=== PATIENT | male | born 1955 | race Caucasian/White ===

== ENCOUNTER 2018-04-30 14:22 | Emergency (ER) | payer MEDICAID ==
[~2018-04-30] VITALS: Ht 182.9 cm; Wt 81.6 kg
--- NOTE | 2018-04-30 14:42 | NUR ---
BBPA FROM [facility]: GENERALIZED BODY WEAKNESS x 2 DAYS. WILL CONT TO MONITOR
[2018-04-30 15:16] LABS: BASOPHILS # (AUTO) 0.2 /CMM (0.0-0.2); BASOPHILS % (AUTO) 1.9 % (0.0-2.0); EOSINOPHILS % (AUTO) 0.4 % (0.0-6.0); HEMATOCRIT 46 % (39-51); HEMOGLOBIN 15.6 g/dL (13.5-17.5); LYMPHOCYTES # (AUTO) 1.2 /CMM (0.8-4.8); MEAN CORPUSCULAR HEMOGLOBIN 31 PG (26.0-33.0); MEAN CORPUSCULAR HGB CONC 34 g/dl (31.0-36.0); MEAN CORPUSCULAR VOLUME 90 fL (80-96); MONOCYTES # (AUTO) 0.9 /CMM (0.1-1.30); NEUTROPHILS # (AUTO) 6.1 /CMM (1.8-8.9); NEUTROPHILS % (AUTO) 72.7 % (43.0-81.0); PLATELET COUNT (AUTO) 173 /CMM (150-450); RDW COEFFICIENT OF VARIATION 12.6 (11.5-15.0); RED BLOOD CELL COUNT(AUTO) 5.09 MIL/uL (4.5-6.0); WHITE BLOOD COUNT (AUTO) 8.4 K/uL (4.3-11.0)
[2018-04-30 15:25] LABS: CALCIUM, SERUM 8.8 mg/dL (8.5-10.1); CARBON DIOXIDE 25 mmol/L (21-32); CHLORIDE 108 mmol/L (98-107); GLUCOSE 113 mg/dL (74-106); POTASSIUM 3.9 mmol/L (3.5-5.1); SODIUM SERUM 140 mmol/L (136-145); UREA NITROGEN, BLOOD 14 mg/dL (7-18)
[2018-04-30 15:29] LABS: INR 0.96 (0.85-1.15)
[2018-04-30 15:31] LABS: ALANINE AMINOTRANSFERASE 36 U/L (12-78); ALBUMIN 3.1 g/dL (3.4-5.0); ALKALINE PHOSPHATASE 76 U/L (46-116); ASPARTATE AMINOTRANSFERASE 14 U/L (15-37); BILIRUBIN,DIRECT 0.1 mg/dL (0.0-0.2); BILIRUBIN,TOTAL 0.4 mg/dL (0.2-1.0); TOTAL PROTEIN, SERUM 7.2 g/dL (6.4-8.2)
[2018-04-30 15:33] LABS: TROPONIN I < 0.017 ng/mL (0.00-0.056)
[2018-04-30 16:06] LABS: BILIRUBIN,URINE Negative (NEGATIVE); BLOOD, URINE Trace-intact Ery/uL (NEGATIVE); COLOR,URINE Yellow (YELLOW); KETONES,URINE Trace (NEGATIVE); LEUKOCYTE ESTERASE ,URINE Moderate (NEGATIVE); NITRITE, URINE Positive (NEGATIVE); PH,URINE 7.5 (5.0-8.0); PROTEIN,URINE Trace mg/dl (NEGATIVE); UGLUCOSE Negative (NEGATIVE)
[2018-04-30 16:07] LABS: APPEARANCE,URINE Hazy (CLEAR)
[2018-04-30 16:17] LABS: BACTERIA,URINE Many /HPF (None Seen); SQUAMOUS EPITHELIAL CELL,UR Few /HPF (None Seen); WBC,URINE 50-80 /HPF (0-3)
[2018-04-30] MEDS ORDERED: MIDAZOLAM HCL 2 MG/2ML VIAL IV ONE ×2 (16:30)
[2018-04-30] MEDS ORDERED: MIDAZOLAM HCL 2 MG/2ML VIAL ONE (16:31)
[2018-04-30] MEDS ORDERED: PIPERACILLIN /TAZOBACTAM 3.375 G in IV D5W 50 ML IV ONE (18:00)
--- NOTE | 2018-04-30 19:10 | NUR ---
PATIENT IS COMFORTABLE IN BED. WILL CONTINUE TO MONITOR FOR ANY CHANGES DURING THE SHIFT.
[2018-04-30] MEDS ORDERED: IV NS 0.9% 500 ML BAG IV ONE (20:00)
--- NOTE | 2018-04-30 21:58 | NUR ---
PT IS SLEEPING COMFORTABLY IN BED. WILL CONTINUE TO MONITOR FOR ANY CHANGES DURING THE SHIFT.
--- NOTE | 2018-04-30 22:32 | NUR ---
RECEIVED A CALL FROM [facility] AND SPOKE TO JESSICA AND WAS TOLD THIS PT WAS ACCEPTED BY [facility] UNDER DR MAC. PT IS ASSIGNED TO ROOM 206-A, STEPHANIE UREÑA IS THE ACCEPTING NURSE. NUMBER FOR REPORT IS [phone]. WILL GET A CALL BACK FOR TRANSPORT ETA
--- NOTE | 2018-04-30 23:02 | NUR ---
REPORT GIVEN TO MI AT [facility]
--- NOTE | 2018-04-30 23:04 | NUR ---
CALLED [facility] TO MAKE AWARE THAT PATIENT IS BEING TRANSFERRED TO ANOTHER HOSPITAL.
[2018-05-01 00:17] VITALS: BP 115/71
== END 2018-05-01 00:18 | disposition short-term general hospital (02) ==
LOC: ER 14:36
DX: N39.0 Urinary tract infection, site not specified (principal); R53.1 Weakness; G40.909 Epilepsy, unspecified, not intractable, without status epilepticus; E86.0 Dehydration; J44.9 Chronic obstructive pulmonary disease, unspecified; F17.200 Nicotine dependence, unspecified, uncomplicated
CPT/HCPCS: 36415; 70450; 71045; 80048; 80076; 81001; 82962; 83605; 84484; 85025; 85730; 87040 ×2; 87081; 93005; 96365; 96375; 99285; A4606; A6403; J2250; J2543; J7040; J7060; Z7610; 81000-TC

== ENCOUNTER 2021-04-17 18:58 | Inpatient (IN) | payer MEDICARE, MEDICAID ==
[~2021-04-17] VITALS: Ht 175.3 cm; Wt 50.3 kg
--- NOTE | 2021-04-17 18:58 | NUR ---
PT BIBRA FROM SNF C/O LOW 02 SAT AND LOW BP 70'S SYSTOLIC. PT IS AAOX0, NOTED RESPIRATORY DISTRESS, HOOKED TO O2 AT 15LPM VIA NB, HOOKED TO SUPERVISOR ESTERS AND EMULSIFIERS, KEPT RESTED AND COMFORTABLE. WILL CONTINUE TO MONITOR.
--- NOTE | 2021-04-17 19:00 | NUR ---
IV LINE ESTABLISHED.
--- NOTE | 2021-04-17 19:12 | NUR ---
PT SEEN AND EXAMINED BY .
--- NOTE | 2021-04-17 19:15 | NUR ---
Note simona in ED - 04/17/21 at 1927 by YOANA PT IS ABLE TO TALK BUT STILL NOTED WITH SLIGHT STUTTERING. MADE AWARE.
[2021-04-17] MEDS ORDERED: LORA2ORA SL (19:19)
[2021-04-17] MEDS ORDERED: MORP20SO SL (19:19)
[2021-04-17] MEDS ORDERED: MAGN400O6 PO (19:19)
[2021-04-17] MEDS ORDERED: POLY17PO4 PO (19:19)
[2021-04-17] MEDS ORDERED: LEVE100S PO (19:19)
[2021-04-17] MEDS ORDERED: ATRO5DRP SL (19:19)
[2021-04-17] MEDS ORDERED: ACET650S11 RC (19:19)
[2021-04-17] MEDS ORDERED: BISA10SU11 RC (19:19)
[2021-04-17] MEDS ORDERED: IPRA3AMP23 IH (19:19)
[2021-04-17] MEDS ORDERED: SCOP1PAT11 TD (19:19)
[2021-04-17] MEDS ORDERED: MIDO10TA PO (19:19)
[2021-04-17] MEDS ORDERED: ACET-868 PO (19:19)
[2021-04-17] MEDS ORDERED: SENN-261 PO (19:19)
[2021-04-17] MEDS ORDERED: VANCOMYCIN 1 GM in IV D5W 250 ML IV ONE (19:30)
[2021-04-17] MEDS ORDERED: NS 0.9% IV ONE (19:30)
[2021-04-17] MEDS ORDERED: NOREPINEPHRINE 8 MG in IV NS 0.9% 242 ML IV PRN (19:30)
[2021-04-17] MEDS ORDERED: MEROPENEM 1,000 MG in IV NS 0.9% 100 ML IV ONE (19:30)
--- NOTE | 2021-04-17 19:40 | NUR ---
IV LINE ESTABLISHED BLOOD DRAWN AND SENT TO LAB.
--- NOTE | 2021-04-17 19:44 | NUR ---
REPORT GIVEN TO NIRANJAN VAZQUEZ FOR STEVE.
[2021-04-17 19:55] LABS: BASOPHILS % (AUTO) 0.3 % (0.0-2.0); LYMPHOCYTES # (AUTO) 0.4 K/uL (0.8-4.8); LYMPHOCYTES % (AUTO) 5.7 % (20.0-44.0); MEAN CORPUSCULAR HGB CONC 33 g/dl (31.0-36.0); MEAN CORPUSCULAR VOLUME 91 fL (80-96); MONOCYTES # (AUTO) 0.8 K/uL (0.1-1.30); MONOCYTES % (AUTO) 10.3 % (2.0-12.0); NEUTROPHILS # (AUTO) 6.3 K/uL (1.8-8.9); NEUTROPHILS % (AUTO) 83.7 % (43.0-81.0); PLATELET COUNT (AUTO) 176 K/uL (150-450); RED BLOOD CELL COUNT(AUTO) 6.62 MIL/uL (4.5-6.0); WHITE BLOOD COUNT (AUTO) 7.5 K/uL (4.3-11.0)
[2021-04-17 19:58] LABS: HEMOGLOBIN 19.9 g/dL (13.5-17.5)
[2021-04-17 19:59] LABS: HEMATOCRIT 60 % (39-51)
[2021-04-17 20:12] LABS: ALANINE AMINOTRANSFERASE 54 U/L (12-78); ALBUMIN 3.2 g/dL (3.4-5.0); ALKALINE PHOSPHATASE 83 U/L (46-116); ASPARTATE AMINOTRANSFERASE 24 U/L (15-37); BILIRUBIN,DIRECT 0.4 mg/dL (0.0-0.2); BILIRUBIN,TOTAL 1.2 mg/dL (0.2-1.0); CALCIUM, SERUM 9.8 mg/dL (8.5-10.1); CARBON DIOXIDE 21 mmol/L (21-32); CHLORIDE 113 mmol/L (98-107); CREATININE 2.1 mg/dL (0.6-1.3); GLUCOSE 155 mg/dL (74-106); POTASSIUM 4.9 mmol/L (3.5-5.1); SODIUM SERUM 155 mmol/L (136-145); TOTAL PROTEIN, SERUM 7.3 g/dL (6.4-8.2); UREA NITROGEN, BLOOD 44 mg/dL (7-18)
--- NOTE | 2021-04-17 20:15 | NUR ---
RN/ICU- HOME PERSONNEL HERE AND PT. WAS DC PER PROTOCOL. Addendum: 04/17/21 at 2021 by KIRAN GONZALEZ RN PLS. DISREGARD ABOVE NOTE. MISTAKEN ENTRY..............
--- NOTE | 2021-04-17 20:16 | NUR ---
PT REC'D ETOMIDATE 20 AND QUINTEN [address] GOULD'S ORDER AT BED SIDE AT 2013 AND PT GOT INTUBATED W/ A SIZE 7.5 W/ 24CM @LIP. + COLOR CHANGE
--- NOTE | 2021-04-17 20:17 | NUR ---
RESP NOTES PT ORALLY INTUBATED BY BRYANNA SCALES WITH 7.5 ETT SECURED AT 25CM AT THE LIP LINE. MIST NOTED ON TUBE. COLOR CHANGE NOTED ON CO2 DETECTOR. EQUALLY CHEST RISE NOTED. PLACED ON [facility] VENT ON ORDERED SETTINGS AC, 16, 500, 100%, +0. ALARMS SET AND AUDIBLE. AMBUBAG AT BEDSIDE. VENT PLUGGED INTO RED OUTLET. WILL CONT TO MONITOR.
--- NOTE | 2021-04-17 20:26 | NUR ---
DR GOULD AT BED SIDE FOR CENTRAL LINE INSERTION
--- NOTE | 2021-04-17 20:52 | NUR ---
RAD AT BED SIDE
[2021-04-17] MEDS ORDERED: PROPOFOL 100 ML IV PRN (21:00)
[2021-04-17] MEDS ORDERED: FENTANYL CITRAT IV 2,500 MCG in IV NS 0.9% 200 ML IV PRN (21:00)
[2021-04-17 21:21] LABS: BAND % (MANUAL) 9 % (0.0-5.0); LYMPHOCYTES % (MANUAL) 20 % (16-48); MONOCYTES % (MANUAL) 2 % (0-11.0); MYELOCYTES % 1 % (0-0); NEUTROPHILS % (MANUAL) 68 (42-76)
[2021-04-17 21:28] LABS: ABG BASE EXCESS -6.4 mmol/L; ABG OXYGEN SATURATION 99.1 % (92.0-98.5); ABG PCO2 48.9 mmHg (35.0-45.0); ABG PH 7.255 (7.350-7.450); ABG PO2 307.4 mmHg (75.0-100.0); AaDO2 356.7 mmHg; COHb 0.1 % (0.5-1.5); SITE, ABG Right Radial
[2021-04-17] MEDS ORDERED: ONDANSETRON HCL/PF 4 MG/2 ML VIAL IVP PRN (21:30)
[2021-04-17] MEDS ORDERED: Z GUARD REMEDY 2 OZ OINT TP PRN (21:30)
[2021-04-17] MEDS ORDERED: ACETAMINOPHEN 325 MG TABLET PO PRN (21:30)
[2021-04-17] MEDS ORDERED: ZOLPIDEM TARTRATE 5 MG TABLET PO PRN (21:30)
--- NOTE | 2021-04-17 21:37 | NUR ---
REPORT GIVEN LIANG SHAH
[2021-04-17] MEDS ORDERED: NOREPINEPHRINE 4 MG/4 ML AMPUL IV ONE (22:01)
[2021-04-17] MEDS: NOREPINEPHRINE 8 MG in IV NS 0.9% 242 ML IV PRN ×2 (22:15→22:49)
[2021-04-17] MEDS: IV NS 0.9% 1,000 ML IV PRN (22:15)
--- NOTE | 2021-04-17 22:23 | NUR ---
PT WAS TRANSFERRED TO ICU UNDER ACLS
--- NOTE | 2021-04-17 22:30 | NUR ---
ICU/SYSTEMS INTEGRATION MANAGER PT WAS RECIEVED FROM ER. PT PLACED ON MONITOR, WITH ALARM SETTINGS IN PLACE. SEE FLOWSHEET FOR ASSESSMENT, ALONG WITH THE SKIN ISSUES AND THE INTERVENTIONS TO EACH. PT APPEARS TO BE TOLERATING THE VENT AND CURRENT SETTINGS. PT WAS TURNED AND REPOSITIONED FOR COMFORT AND CARE. WILL MONITOR THIS PT FOR ANY ACUTE CHANGES.
[2021-04-17 22:31] VITALS: BP 126/95
[2021-04-17] MEDS: PANTOPRAZOLE 40 MG VIAL IV SCH (22:46)
[2021-04-17 23:00] VITALS: BP 102/88
--- NOTE | 2021-04-17 23:20 | NUR ---
ICU/NAIL ARTIST CRITICAL LAB VALUE OF 6.8 LACTIC ACID FROM 9.9. PN CALL NOTIFED ABOUT THIS HOWEVER NO NEW ORDERS WERE RECIEVED.
[2021-04-17 23:30] VITALS: BP 116/82
[2021-04-17] MEDS ORDERED: PIPERACILLIN /TAZOBACTAM 3.375 G VIAL IV ONE (23:32)
[2021-04-17] MEDS: ZOSYN IVPB 3.375 G in IV D5W 50ml IV SCH (23:33)
--- NOTE | 2021-04-17 23:45 | NUR ---
ICU/ECONOMIC ADVISER NOTIFED THAT THERE IS A PULSE FOR DNR IN PT'S CHART. CHARGE NURSE MADE AWARE OF THIS. WILL PASS ON TO DAY SHIFT NURSE TO HAVE MD ADDRESS THIS.
[2021-04-18] VITALS (92 sets, daily range): BP systolic 82–119; BP diastolic 47–100
[2021-04-18] MEDS ORDERED: NOREPINEPHRINE 8MG/250ML RTU 250 ML IV ONE (00:23)
[2021-04-18] MEDS: NOREPINEPHRINE 8 MG in IV NS 0.9% 242 ML IV PRN ×3 (00:30→16:46)
--- NOTE | 2021-04-18 00:30 | NUR ---
ICU/PATIENT SAFETY ATTENDANT LEVO IS CURRENTLY BEING TITRATED DUE TO STABLE BP 120'S-110'S, BY SKIING INSTRUCTOR NURSE. SEE IF SPREADSHEET FOR TITRATIONS AND BLOOD PRESSURE. WILL CONTINUE TO CLOSELY MONITOR THIS PT AND HIS BLOOD PRESSURE.
[2021-04-18] MEDS: PROPOFOL 100 ML IV PRN ×2 (00:39→08:39)
--- NOTE | 2021-04-18 00:48 | NUR ---
ICU/CONVEYOR FEEDER OFFBEARER PT APPEARS TO BE MORE AWAKE WITH RESP. INCREASED TO THE 30'S -40'S. NOTIFIED CLINICAL ORTHOPTIST NURSE WHO THEN OBTAINED AN ORDER FOR SEDATION, PROPOFOL. WILL CONTINUE TO MONITOR THIS PT.
[2021-04-18 01:48] LABS: BILIRUBIN,URINE SMALL (NEGATIVE); COLOR,URINE YELLOW (YELLOW); LEUKOCYTE ESTERASE ,URINE NEGATIVE (NEGATIVE); NITRITE, URINE NEGATIVE (NEGATIVE); PROTEIN,URINE 100 mg/dl (NEGATIVE); UGLUCOSE NEGATIVE (NEGATIVE)
[2021-04-18 01:57] LABS: FINE GRANULAR CASTS,URINE Few /LPF (None Seen); HYALINE CASTS, URINE Rare /LPF (None Seen); RBC,URINE 81-100 /HPF (0-2); SQUAMOUS EPITHELIAL CELL,UR Few /HPF (None Seen)
[2021-04-18 01:58] LABS: BACTERIA,URINE Few /HPF (None Seen); COARSE GRANULAR CASTS,URINE Few /LPF (None Seen)
--- NOTE | 2021-04-18 02:00 | NUR ---
ICU/TALENT SCOUT SEDATION WAS INCREASED TO 20MCG, DUE TO MILD AGITATION. WILL MONITOR THIS PT.
--- NOTE | 2021-04-18 04:00 | NUR ---
ICU/RIG SUPERVISOR AN O/G TUBE WAS PLACE, POSITIVE PLACEMENT WAS OBTAINED BY 2 NURSES.
[2021-04-18 04:26] LABS: BASOPHILS % (AUTO) 0.2 % (0.0-2.0); HEMATOCRIT 52 % (39-51); HEMOGLOBIN 17.3 g/dL (13.5-17.5); LYMPHOCYTES # (AUTO) 0.9 K/uL (0.8-4.8); LYMPHOCYTES % (AUTO) 8.5 % (20.0-44.0); MEAN CORPUSCULAR HGB CONC 34 g/dl (31.0-36.0); MEAN CORPUSCULAR VOLUME 90 fL (80-96); MONOCYTES # (AUTO) 1.1 K/uL (0.1-1.30); MONOCYTES % (AUTO) 10.6 % (2.0-12.0); NEUTROPHILS # (AUTO) 8.3 K/uL (1.8-8.9); NEUTROPHILS % (AUTO) 80.7 % (43.0-81.0); PLATELET COUNT (AUTO) 146 K/uL (150-450); RED BLOOD CELL COUNT(AUTO) 5.73 MIL/uL (4.5-6.0); WHITE BLOOD COUNT (AUTO) 10.3 K/uL (4.3-11.0)
[2021-04-18 04:42] LABS: CALCIUM, SERUM 8.7 mg/dL (8.5-10.1); CREATININE 1.5 mg/dL (0.6-1.3); MAGNESIUM 2.3 mg/dL (1.8-2.4); PHOSPHORUS 4.7 mg/dL (2.5-4.9); POTASSIUM 4.3 mmol/L (3.5-5.1)
--- NOTE | 2021-04-18 05:10 | NUR ---
ICU/WEB DESIGNER CRITICAL LAB VALUE OF TROP 1.137 WAS CALLED INTO [facility], NO NEW ORDERS RECIEVED FOR THIS. WILL CONTINUE TO MONITOR THIS PT.
[2021-04-18] MEDS ORDERED: PIPERACILLIN /TAZOBACTAM 3.375 G VIAL IV ONE (05:44)
[2021-04-18] MEDS: ZOSYN IVPB 3.375 G in IV D5W 50ml IV SCH (05:45)
--- NOTE | 2021-04-18 05:45 | NUR ---
ICU/CENTRAL OFFICE EQUIPMENT ENGINEER COOLING MEASURES WERE DONE WITH ICE PACKS TO ARMS FOR TEMP. 100.0 ORALLY. WILL CONTINUE TO MONITOR THIS PT.
--- NOTE | 2021-04-18 07:40 | NUR ---
ICU/RN PT IS INTUBATED ON THE VENT AC MODE,FIO2-60%,SAT 02-98%.SEDATED ON DIPRIVAN .ON LEVOPHED DRIP AND IV FLUIDS ORDERED.RIGHT FEMORAL TLC.OG TUBE CLAMPED.PT IS NPO.F/C DRAINING WITH DAYO URINE.BILATERAL WRIST SOFT RESTRAINS ON.SUCTION PROVIDED.REPOSITION FOR COMFORT.LABS REVIEW. NOTIFIED.
[2021-04-18 07:59] LABS: ABG BASE EXCESS -0.4 mmol/L; ABG OXYGEN SATURATION 98.8 % (92.0-98.5); ABG PCO2 34.6 mmHg (35.0-45.0); ABG PO2 159.8 mmHg (75.0-100.0); AaDO2 229.9 mmHg; COHb 0.3 % (0.5-1.5); MetHb 0.4 % (0.0-1.5); O2Hb 98.1 % (94.0-97.0); SITE, ABG Right Radial
[2021-04-18] MEDS ORDERED: HEPARIN SODIUM, PORCINE 5000 UNITS/1 ML VIAL SQ SCH (09:00)
--- NOTE | 2021-04-18 09:00 | NUR ---
ICU/RN ABG DONE ,PT PLACED ON 40% FIO2.SAT O2-97%.DUE MEDS ARE GIVEN ORDERED.
--- NOTE | 2021-04-18 10:00 | NUR ---
ICU/RN CT OF THE HEAD DONE.
[2021-04-18] MEDS: IV NS 0.9% 1,000 ML IV PRN (10:45)
--- NOTE | 2021-04-18 11:46 | NUR ---
ICU/RN SEDATION VACATION PROVIDED.DIPRIVAN OFF FOR 1 HR .PT IS AWAKE,FOLLOWS COMMAND ,VERY WEAK HR INCREASED TO 127 BPM,RR-41.PT IS BACK ON PROPOFOL.
[2021-04-18] MEDS: PIPERACILLIN /TAZOBACTAM 3.375 G in IV D5W 100 ML IV SCH ×2 (12:06→21:13)
[2021-04-18] MEDS: DEXAMETHASONE SOD PHOSPHATE 10 MG/ML VIAL IV SCH ×2 (16:45→21:13)
--- NOTE | 2021-04-18 18:30 | NUR ---
ICU/RN PM CARE PROVIDED.PT HAS T=101.4.TYLENOL VIA NG TUBE GIVEN ORDERED.ALL MEDS ARE GIVEN ORDERED.SUCTION PROVIDED.REPOSITION FOR COMFORT.
[2021-04-18] MEDS: LEVETIRACETAM (500MG) 500 MG in IV NS 0.9% 100 ML IV SCH (18:54)
--- NOTE | 2021-04-18 19:05 | NUR ---
RECEIVED PT ON BED SEDATED ON ETT 7.5/VENT SETTING PER MD ORDER FIO2 60% SPO2 97% NO SIGN OF RESPIRATORY DISTRESS NOTED, SINUS TACHY ON MONITOR HR 100'S, HAVE RFEM 3L CATH WITH ONGOING LEVOPHED @ 0.2 MCG/KG/MIN DIPRIVAN @ 20 MCG/KG/MIN, NS@ 100ML/HR INFUSING WELL, PT TEMP IS 100.5 COOLING MEASURE IN PLACED, HAVE BILATERAL WRIST RESTRAINS FOR SELF EXTUBATION PRECAUTION, HAVE CAMPO CATHETER WITH DAYO URINE DRAINING VIA GRAVITY, BED ON LOWEST POSITION AND LOCKED SIDE RAILS UP WILL CONT TO MONITOR
[2021-04-18] MEDS: VANCOMYCIN 1 GM in IV D5W 250ml IV SCH (20:32)
[2021-04-18] MEDS: PANTOPRAZOLE 40 MG VIAL IV SCH (21:12)
[2021-04-19] VITALS (95 sets, daily range): BP systolic 78–121; BP diastolic 51–97
[2021-04-19] MEDS: PROPOFOL 100 ML IV PRN
[2021-04-19] MEDS: IV NS 0.9% 1,000 ML IV PRN (00:31)
--- NOTE | 2021-04-19 01:20 | NUR ---
PT ON BED STILL SEDATED, ON ETT/VENT SETTING ORDER NO SIGN OF RESPIRATORY DISTRESS, NO PAIN NOTED WILL CONT TO MONITOR
[2021-04-19] MEDS: DEXAMETHASONE SOD PHOSPHATE 10 MG/ML VIAL IV SCH ×4 (04:26→21:25)
[2021-04-19] MEDS: PIPERACILLIN /TAZOBACTAM 3.375 G in IV D5W 100 ML IV SCH ×3 (04:26→21:25)
[2021-04-19] MEDS: LEVETIRACETAM (500MG) 500 MG in IV NS 0.9% 100 ML IV SCH ×2 (05:24→17:38)
[2021-04-19 05:35] LABS: BASOPHILS % (AUTO) 0.5 % (0.0-2.0); EOSINOPHILS % (AUTO) 0.1 % (0.0-6.0); HEMATOCRIT 53 % (39-51); HEMOGLOBIN 17.7 g/dL (13.5-17.5); LYMPHOCYTES # (AUTO) 0.6 K/uL (0.8-4.8); LYMPHOCYTES % (AUTO) 7.3 % (20.0-44.0); MEAN CORPUSCULAR HGB CONC 34 g/dl (31.0-36.0); MEAN CORPUSCULAR VOLUME 91 fL (80-96); MONOCYTES # (AUTO) 0.5 K/uL (0.1-1.30); MONOCYTES % (AUTO) 5.8 % (2.0-12.0); NEUTROPHILS % (AUTO) 86.3 % (43.0-81.0); PLATELET COUNT (AUTO) 132 K/uL (150-450); RED BLOOD CELL COUNT(AUTO) 5.83 MIL/uL (4.5-6.0); WHITE BLOOD COUNT (AUTO) 8.1 K/uL (4.3-11.0)
[2021-04-19 06:11] LABS: ALBUMIN 2.6 g/dL (3.4-5.0); CALCIUM, SERUM 9.1 mg/dL (8.5-10.1); MAGNESIUM 2.5 mg/dL (1.8-2.4); PHOSPHORUS 2.8 mg/dL (2.5-4.9); POTASSIUM 4.1 mmol/L (3.5-5.1); TOTAL PROTEIN, SERUM 6.6 g/dL (6.4-8.2)
[2021-04-19] MEDS: NOREPINEPHRINE 8 MG in IV NS 0.9% 242 ML IV PRN (06:32)
--- NOTE | 2021-04-19 06:41 | NUR ---
PT ON BED STILL SEDATED, ETT/VENT SETTING PER MD FIO2 40% SPO2 100 % NO SIGNIFICANT CHANGES ON CONDITION NOTED, ALL NEEDS ATTENDED STILL ON PROPOFOL @ 20 MCG/KG/MIN, LEVOPHED @ 0.2 MCG/KG/MIN AND NS @ 100 ML/HR INFUSING VIA RFEM 3L CATHETER,BEDSIDE MONITOR READS SINUS TACHY 100'S, ON CAMPO WITH 3200 URINE OUTPUT, BED ON LOWEST POSITION AND LOCKED SIDE RAILS UP X 2 WILL ENDORSED TO AM SHIFT NURSE
[2021-04-19] MEDS: IV D5/0.45 NACL 1,000 ML IV PRN ×2 (07:27→18:04)
--- NOTE | 2021-04-19 10:34 | NUR ---
RN NOTE 0715: Received patient with ETT to vent, tolerated settings well. No respiratory distress noted. With Right fem TLC, on Levo 0.2mcg. Will titrate as ordered. IVF started by previous nurse. OGT intact, clamped. Villatoro cath intact, noted with clear pale yellow urine drained to BSD. On Diprivan @ 20mcg. 0815: Turned off Diprivan for sedation vacation and prep for weaning. 0930: S/E by Dr. Arreaga, per , no weaning today due to electrolytes imbalance. MD ordered repeat BMP @ 1100. Continue free water flushes 250 q4. Made aware still no response even off Diprivan, will continue to monitor. 1030: No any significant changes noted at this time. Kept clean, warm and dry.
[2021-04-19 11:30] LABS: CALCIUM, SERUM 9.1 mg/dL (8.5-10.1); CREATININE 0.9 mg/dL (0.6-1.3); MAGNESIUM 2.8 mg/dL (1.8-2.4); PHOSPHORUS 2.3 mg/dL (2.5-4.9); POTASSIUM 3.3 mmol/L (3.5-5.1)
--- NOTE | 2021-04-19 12:40 | NUR ---
TIFFANY called [facility] MÉNDEZ [phone] who is the conservator for this pt. TIFFANY left Conservator a voicemail requesting that the paperwork for medical decision making be faxed to TIFFANY at [phone].
[2021-04-19] MEDS ORDERED: K PHOS NEUTRAL 250 MG TABLET PO ONE (15:30)
[2021-04-19 15:38] LABS: D-DIMER 35.2 mg/L(FEU (0.17-0.50)
--- NOTE | 2021-04-19 18:45 | NUR ---
RN NOTE Remained intubated. On Levo @ 0.1 mcg. Still noted with copious amount of urine. Continue IVF and water flushes as ordered. With F/U lytes @ 8pm. Still no response to tactile stimuli. Kept off Diprivan.
--- NOTE | 2021-04-19 19:04 | NUR ---
RECEIVED PT ON BED ON ETT 7.02/06/VENT SETTING PER MD ORDER FIO2 40% SPO2 97% NO SIGN OF RESPIRATORY DISTRESS NOTED, SINUS TACHY ON MONITOR HR 100'S, HAVE RFEM 3L CATH WITH ONGOING LEVOPHED @ 0.1 MCG/KG/MIN TO TITRATE PER PROTOCOL D5 1/2 NS NS@ 100ML/HR INFUSING WELL, PT TEMP IS 99.6 COOLING MEASURE IN PLACED, HAVE BILATERAL WRIST RESTRAINS FOR SELF EXTUBATION PRECAUTION, HAVE CAMPO CATHETER WITH YELLOW URINE DRAINING VIA GRAVITY, BED ON LOWEST POSITION AND LOCKED SIDE RAILS UP WILL CONT TO MONITOR
[2021-04-19 20:30] LABS: CALCIUM, SERUM 9.2 mg/dL (8.5-10.1); CREATININE 0.9 mg/dL (0.6-1.3); MAGNESIUM 2.6 mg/dL (1.8-2.4); PHOSPHORUS 2.4 mg/dL (2.5-4.9); POTASSIUM 3.2 mmol/L (3.5-5.1)
[2021-04-19] MEDS: VANCOMYCIN 1 GM in IV D5W 250ml IV SCH (20:39)
--- NOTE | 2021-04-19 20:57 | NUR ---
REPORTED TO JAMES GARCIA SHOE CEMENTER ONCALL Na-175 AND Cl-136 WITH ORDER TO CHANGES IVF TO D5W @100ML/HR NOTED AND CARRIED OUT
[2021-04-19] MEDS ORDERED: IV D5W 1,000 ML IV PRN (21:00)
--- NOTE | 2021-04-19 21:21 | NUR ---
REPORTED ALSO TO JAMES GARCIA NP THAT K+3.2 PHOS 2.4 Mg 2.6 WITH ORDER TO ADD 20 MEQ KCL TO D5W1L @ 100ML/HR NOTED AND CARRIED OUT
[2021-04-19] MEDS: PANTOPRAZOLE 40 MG VIAL IV SCH (21:25)
[2021-04-19] MEDS: Potassium Chloride 20 MEQ in IV D5W 1,000 ML IV PRN (22:30)
[2021-04-19] MEDS ORDERED: IV PREMIX D5W + KCL 1,000 ML IV ONE (22:43)
[2021-04-20] VITALS (97 sets, daily range): BP systolic 60–142; BP diastolic 42–100
[2021-04-20] MEDS: PIPERACILLIN /TAZOBACTAM 3.375 G in IV D5W 100 ML IV SCH (04:15)
[2021-04-20] MEDS: DEXAMETHASONE SOD PHOSPHATE 10 MG/ML VIAL IV SCH ×4 (04:16→21:31)
[2021-04-20 04:28] LABS: BASOPHILS % (AUTO) 0.1 % (0.0-2.0); HEMATOCRIT 49 % (39-51); HEMOGLOBIN 16.1 g/dL (13.5-17.5); LYMPHOCYTES # (AUTO) 0.8 K/uL (0.8-4.8); LYMPHOCYTES % (AUTO) 7.4 % (20.0-44.0); MEAN CORPUSCULAR HGB CONC 33 g/dl (31.0-36.0); MEAN CORPUSCULAR VOLUME 92 fL (80-96); MONOCYTES # (AUTO) 0.4 K/uL (0.1-1.30); MONOCYTES % (AUTO) 3.9 % (2.0-12.0); NEUTROPHILS # (AUTO) 10.1 K/uL (1.8-8.9); NEUTROPHILS % (AUTO) 88.6 % (43.0-81.0); PLATELET COUNT (AUTO) 120 K/uL (150-450); RED BLOOD CELL COUNT(AUTO) 5.31 MIL/uL (4.5-6.0); WHITE BLOOD COUNT (AUTO) 11.4 K/uL (4.3-11.0)
[2021-04-20] MEDS: NOREPINEPHRINE 8 MG in IV NS 0.9% 242 ML IV PRN ×2 (04:31→14:16)
[2021-04-20 04:46] LABS: MAGNESIUM 2.5 mg/dL (1.8-2.4); PHOSPHORUS 2.4 mg/dL (2.5-4.9)
[2021-04-20 04:58] LABS: POTASSIUM 3.2 mmol/L (3.5-5.1)
--- NOTE | 2021-04-20 05:22 | NUR ---
REPORTED TO JAMES GARCIA NP THE Na-175 Cl-138 AND GLUCOSE 379 WITH ORDER OF NPO SLIDING SCALE NOTED AND CARRIED OUT
[2021-04-20] MEDS ORDERED: DEXTROSE 50%-WATER 50 ML DISP.SYRIN IV PRN (05:30)
[2021-04-20] MEDS: BLOOD SUGAR DIAGNOSTIC 1 EACH STRIP IN SCH ×3 (05:31→17:12)
[2021-04-20] MEDS: INSULIN REGULAR, HUMAN 100 UNIT/ML 3 ML VIAL SQ PRN ×3 (05:32→17:13)
[2021-04-20] MEDS: LEVETIRACETAM (500MG) 500 MG in IV NS 0.9% 100 ML IV SCH (05:35)
[2021-04-20] MEDS ORDERED: DESMOPRESSIN ACETATE 0.1 MG/ML NS ONE (07:00)
[2021-04-20] MEDS ORDERED: DESMOPRESSIN 15 MCG in IV NS 0.9% 50 ML IV ONE (07:30)
[2021-04-20] MEDS: Potassium Chloride 20 MEQ in IV D5W 1,000 ML IV PRN ×2 (08:37→18:35)
--- NOTE | 2021-04-20 10:00 | NUR ---
RN NOTE 0715: Received patient intubated, tolerated AC mode on vent. OGT intact, clamped. Right fem TLC intact. On Levo @ 0.3mcg, will titrate as ordered. IVF infusing as ordered. S/E by Dr. Lama with order of DDAVP. Villatoro cath intact, noted with yellow urine drained to BSD. 0900: S/E by Dr. Arreaga, aware for electrolytes, hold off for weaning trial for now per MD. 0950: S/E by Dr. Humphries, with order for FNS consult to start on TF.
[2021-04-20] MEDS ORDERED: CLINDAMYCIN IV RTU IN D5W 900 MG/50 ML PIGGYBACK IV SCH (11:30)
[2021-04-20] MEDS ORDERED: NEUTRA PHOS 1 POWD.PACKET GT ONE (12:00)
[2021-04-20] MEDS ORDERED: INSULIN REGULAR, HUMAN 100 UNIT/ML 10 ML VIAL SQ STA (12:54)
[2021-04-20] MEDS: CEFEPIME 2 GM in IV D5W 100 ML IV SCH ×2 (12:58→21:00)
[2021-04-20] MEDS: CLINDAMYCIN 900 MG in IV D5W 50 ML IV SCH ×2 (13:30→21:31)
[2021-04-20] MEDS ORDERED: JEVITY 1.2 CAL 1,000 ML BOTTLE GT PRN (14:00)
[2021-04-20 15:12] LABS: BASOPHILS % (AUTO) 0.1 % (0.0-2.0); HEMATOCRIT 44 % (39-51); HEMOGLOBIN 14.2 g/dL (13.5-17.5); LYMPHOCYTES # (AUTO) 0.8 K/uL (0.8-4.8); LYMPHOCYTES % (AUTO) 6.6 % (20.0-44.0); MEAN CORPUSCULAR HGB CONC 33 g/dl (31.0-36.0); MEAN CORPUSCULAR VOLUME 92 fL (80-96); MONOCYTES # (AUTO) 0.4 K/uL (0.1-1.30); MONOCYTES % (AUTO) 3.1 % (2.0-12.0); NEUTROPHILS # (AUTO) 11.1 K/uL (1.8-8.9); NEUTROPHILS % (AUTO) 90.2 % (43.0-81.0); PLATELET COUNT (AUTO) 86 K/uL (150-450); RED BLOOD CELL COUNT(AUTO) 4.74 MIL/uL (4.5-6.0); WHITE BLOOD COUNT (AUTO) 12.3 K/uL (4.3-11.0)
[2021-04-20 15:34] LABS: CALCIUM, SERUM 8.8 mg/dL (8.5-10.1); CREATININE 1.3 mg/dL (0.6-1.3); POTASSIUM 3.2 mmol/L (3.5-5.1)
[2021-04-20 15:54] LABS: D-DIMER > 35.20 mg/L(FEU (0.17-0.50)
[2021-04-20 16:41] LABS: BAND % (MANUAL) 1 % (0.0-5.0); LYMPHOCYTES % (MANUAL) 5 % (16-48); NEUTROPHILS % (MANUAL) 94 (42-76)
--- NOTE | 2021-04-20 16:50 | NUR ---
RN NOTE Followed up with [facility] re: request of info but no answer from MR, will follow up in am.
[2021-04-20] MEDS: LEVETIRACETAM SOL (5 ML) 100 MG/ML UDC GT SCH (17:14)
--- NOTE | 2021-04-20 18:32 | NUR ---
RN NOTE Started in TF, tolerated at this time. Remained on Levo @ 2mcg. Turned and repositioned q2. Flushed FT with water as ordered. Noted with low UOP as expected. Afebrile. Kept clean, warm and dry. IVF with KCl ongoing as ordered.
--- NOTE | 2021-04-20 20:00 | NUR ---
SPECIAL EDUCATION TEACHER NOTE Received patient obtunded.SB 50's per cardiac monitoring.On full vent support on AC mode. Afebrile.Hemodynamically unstable on Levophed gtt infusing at 0.2 mcg via R femoral TLC and will titrate accordingly.IVF D5W+20 meq KCL infusing same site.OGT feeding in progress. Placement verified no residual noted.Maintained HOB elevated.FC to gravity oliguric at this time. Turned and repositioned.Continue monitoring.
--- NOTE | 2021-04-20 22:00 | NUR ---
MEDICAL PROFESSIONALS NOTES Patient remains hemodynamically unstable.Levophed gtt titrated.Hypothermic temp 95.5 kept warm with warm blanket.Not tolerating tube feeding residual 280 ml.Feeding on hold. Continue monitoring.
[2021-04-21] VITALS (101 sets, daily range): BP systolic 60–161; BP diastolic 47–110
--- NOTE | 2021-04-21 | NUR ---
FSBS 295 covered with 6 units RI per SS.Free water 250 ml flush via OGT given.Maintained HOB elevated.Turned and repositioned.NAD.
[2021-04-21] MEDS: INSULIN REGULAR, HUMAN 100 UNIT/ML 3 ML VIAL SQ PRN ×4 (00:06→17:33)
[2021-04-21] MEDS: BLOOD SUGAR DIAGNOSTIC 1 EACH STRIP IN SCH ×4 (00:08→17:28)
[2021-04-21] MEDS: NOREPINEPHRINE 8 MG in IV NS 0.9% 242 ML IV PRN ×2 (00:59→11:21)
[2021-04-21] MEDS: Potassium Chloride 20 MEQ in IV D5W 1,000 ML IV PRN (04:12)
[2021-04-21] MEDS: DEXAMETHASONE SOD PHOSPHATE 10 MG/ML VIAL IV SCH ×4 (04:12→21:17)
[2021-04-21 04:23] LABS: HEMATOCRIT 42 % (39-51); HEMOGLOBIN 13.7 g/dL (13.5-17.5); LYMPHOCYTES # (AUTO) 0.7 K/uL (0.8-4.8); MEAN CORPUSCULAR HGB CONC 33 g/dl (31.0-36.0); MEAN CORPUSCULAR VOLUME 91 fL (80-96); MONOCYTES # (AUTO) 0.4 K/uL (0.1-1.30); MONOCYTES % (AUTO) 2.9 % (2.0-12.0); NEUTROPHILS # (AUTO) 13.7 K/uL (1.8-8.9); NEUTROPHILS % (AUTO) 92.1 % (43.0-81.0); PLATELET COUNT (AUTO) 72 K/uL (150-450); RED BLOOD CELL COUNT(AUTO) 4.57 MIL/uL (4.5-6.0); WHITE BLOOD COUNT (AUTO) 14.8 K/uL (4.3-11.0)
[2021-04-21] MEDS: CLINDAMYCIN 900 MG in IV D5W 50 ML IV SCH ×3 (04:30→20:45)
[2021-04-21] MEDS ORDERED: IV NS 0.9% 250 ML IV PRN (04:30)
[2021-04-21 04:41] LABS: CALCIUM, SERUM 8.8 mg/dL (8.5-10.1); CREATININE 1.1 mg/dL (0.6-1.3); PHOSPHORUS 2.7 mg/dL (2.5-4.9); POTASSIUM 4.4 mmol/L (3.5-5.1)
[2021-04-21 04:57] LABS: D-DIMER 35.2 mg/L(FEU (0.17-0.50)
[2021-04-21 05:38] LABS: LYMPHOCYTES % (MANUAL) 5 % (16-48); MONOCYTES % (MANUAL) 3 % (0-11.0); NEUTROPHILS % (MANUAL) 92 (42-76)
[2021-04-21] MEDS: LEVETIRACETAM SOL (5 ML) 100 MG/ML UDC GT SCH ×2 (05:45→17:28)
--- NOTE | 2021-04-21 06:45 | NUR ---
Patient resting latest temp 97.Tolerating vent settings.SR.Levophed infusing at 0.2 mcg. At 0400 OGT residual 40 ml feeding restarted at 20 ml./HR.Low urine output here made aware as well as the AM abn labs NA+ 160 and CHLORIDE 127.No new orders received. AM care done.Turned and repositioned.No acute distress noted.
--- NOTE | 2021-04-21 07:30 | NUR ---
curriculum advisory teacher notes obtunded, intubated and vent, no signs of distress noted. On IV access on Right femoral, running levo @ 0.2 mcg/kg/min, patent and intact, noted with FC draining freely with clear yellow urine, NG tube feeding of jevity 1.2 running @ 20ml/hr, Will continue to monitor.
[2021-04-21] MEDS: PANTOPRAZOLE 40 MG TABLET.DR PO SCH (07:39)
[2021-04-21] MEDS: CEFEPIME 2 GM in IV D5W 100 ML IV SCH ×2 (08:20→20:51)
--- NOTE | 2021-04-21 09:00 | NUR ---
curriculum developer notes seen and examined by Dr. evans with nno at this time.
[2021-04-21] MEDS: INSULIN GLARGINE, 100 UNIT/ML CARTRIDGE SQ SCH ×2 (09:31→17:27)
[2021-04-21] MEDS: IV D5/0.45 NACL 1,000 ML IV PRN (11:57)
--- NOTE | 2021-04-21 19:11 | NUR ---
agricultural mechanic notes obtunded, intubated and vent, no signs of distress noted. On IV access on Right femoral, running levo @ 0.1 mcg/kg/min and d5 1/2 ns @ 50ml/hr, patent and intact, noted with FC draining freely with clear yellow urine, NG tube feeding of jevity 1.2 running @ 20ml/hr with 90 ml RSV. Safety measures maintained, Endorse to trimmer helper nurse for serjio.
--- NOTE | 2021-04-21 19:45 | NUR ---
RN NOTE RECEIVED PATIENT IN BED, OBTUNDED, IN NO S/SX OF ACUTE DISTRESS AT THIS TIME. INTUBATED AT 25 CM ON THE LIP TO MECHANICAL VENT WITH SETTINGS PRESCRIBED: AC 20, TV 500, FIO2 40%, PEEP 0, TOLERATING WELL, SATURATION AT 97%, SR ON THE MONITOR, HR IS 77. NOTED IV SITE AT ADIEL 20G, LFA 20G, AND TLC LINE AT R FEMORAL, ALL HUBS PATENT AND FLUSHING WELL, NO S/S OF INFECTION OR INFILTRATION. NOTED OGTUBE INTACT SECURED AT 63 CM ON THE LIP, POSITIVE PLACEMENT NOTED, 50ML RESIDUAL, WITH TUBE FEEDING OF JEVITY1.2 AT 20 ML/HR. CAMPO CATHETER CONNECTED TO URINE BAG IN PLACE, DRAINING TO A CLEAR, YELLOW OUTPUT. SAFETY MEASURES IMPLEMENTED. PATIENT BED ALARM IS ON. HEAD OF BED ELEVATED. BED IS LOCKED, IN LOWEST POSITION AND SIDE RAILS UP. CALL LIGHT WITHIN REACH OF THE PATIENT. WILL CONTINUE TO MONITOR AND REASSESS FOR ANY CHANGES.
[2021-04-22] VITALS (91 sets, daily range): BP systolic 80–121; BP diastolic 47–87
[2021-04-22] MEDS: BLOOD SUGAR DIAGNOSTIC 1 EACH STRIP IN SCH ×4 (00:11→17:01)
[2021-04-22] MEDS: INSULIN REGULAR, HUMAN 100 UNIT/ML 3 ML VIAL SQ PRN ×4 (00:13→17:03)
[2021-04-22] MEDS: DEXAMETHASONE SOD PHOSPHATE 10 MG/ML VIAL IV SCH ×4 (04:11→22:08)
[2021-04-22] MEDS: CLINDAMYCIN 900 MG in IV D5W 50 ML IV SCH ×3 (04:11→22:08)
[2021-04-22 05:25] LABS: BASOPHILS % (AUTO) 0.1 % (0.0-2.0); HEMATOCRIT 39 % (39-51); HEMOGLOBIN 13.3 g/dL (13.5-17.5); LYMPHOCYTES # (AUTO) 0.6 K/uL (0.8-4.8); LYMPHOCYTES % (AUTO) 4.1 % (20.0-44.0); MEAN CORPUSCULAR HGB CONC 34 g/dl (31.0-36.0); MEAN CORPUSCULAR VOLUME 91 fL (80-96); MONOCYTES # (AUTO) 0.5 K/uL (0.1-1.30); MONOCYTES % (AUTO) 3.5 % (2.0-12.0); NEUTROPHILS # (AUTO) 14.3 K/uL (1.8-8.9); NEUTROPHILS % (AUTO) 92.3 % (43.0-81.0); PLATELET COUNT (AUTO) 55 K/uL (150-450); RED BLOOD CELL COUNT(AUTO) 4.35 MIL/uL (4.5-6.0); WHITE BLOOD COUNT (AUTO) 15.5 K/uL (4.3-11.0)
[2021-04-22 05:33] LABS: CALCIUM, SERUM 8.7 mg/dL (8.5-10.1); CREATININE 0.8 mg/dL (0.6-1.3); POTASSIUM 4.2 mmol/L (3.5-5.1)
[2021-04-22 05:42] LABS: D-DIMER 29.18 mg/L(FEU (0.17-0.50)
[2021-04-22] MEDS: LEVETIRACETAM SOL (5 ML) 100 MG/ML UDC GT SCH ×2 (05:42→17:05)
[2021-04-22] MEDS: IV D5/0.45 NACL 1,000 ML IV PRN (05:57)
--- NOTE | 2021-04-22 06:00 | NUR ---
RN NOTE NOTED RESIDUAL OF 110 ML, AT TUBE FEEDING RATE OF 20 ML/HR, AND FREE H20 FLUSH [id number] Q6H. DR GARCIA WAS NOTIFIED, WITH NO NEW ORDERS. NONDESTRUCTIVE TESTER AWARE.
[2021-04-22] MEDS: NOREPINEPHRINE 8 MG in IV NS 0.9% 242 ML IV PRN (06:22)
--- NOTE | 2021-04-22 07:00 | NUR ---
RN NOTE NOTED RESIDUAL OF 110 ML, AT TUBE FEEDING RATE OF 20 ML/HR, AND FREE H20 FLUSH [id number] Q6H. DR RENDON WAS NOTIFIED, ORDERS RECEIVED TO HOLD TUBE FEEDING FOR NOW AND MONITOR FOR RESIDUAL, AND DECREASE WATER FLUSHES TO 200 ML Q6H. GLASS NOVELTY MAKER AWARE. ENDORSED TO ANITA UREÑA FOR STEVE
--- NOTE | 2021-04-22 07:28 | NUR ---
RN NOTES RECEIVED PATIENT OBTUNDED, ORALLY INTUBATED WITH MECHVENT SETTINGS AC 20 TV 500 FIO2 40% PEEP 0. SR ON BEDSIDE MONITOR. OGT TO JEVITY ON HOLD DUE TO HIGH RESIDUALS. PERIPHERAL IVS X2. RIGHT FEMORAL TLC WITH LEVO AT 0.1MCG/KG/HR AND D51/2 NS AT 50ML/HR ON FLOW. CAMPO DRAINING BY GRAVITY. SAFETY CHECKS IN PLACE. WILL CONTINUE TO MONITOR.
--- NOTE | 2021-04-22 07:39 | NUR ---
RT Pt received orally intubated on mechanical ventilation with noted settings. Vent is plugged into red outlet, BVM by bedside. Vent alarms are set and audible. No SOB or respiratory distress noted. Addendum: 04/22/21 at 1750 by HOWIE AGUILAR RT Amended: Links added.
[2021-04-22] MEDS: CEFEPIME 2 GM in IV D5W 100 ML IV SCH ×2 (08:01→22:08)
[2021-04-22] MEDS: PANTOPRAZOLE 40 MG TABLET.DR PO SCH (08:04)
[2021-04-22] MEDS: INSULIN GLARGINE, 100 UNIT/ML CARTRIDGE SQ SCH ×2 (08:05→16:12)
[2021-04-22 09:59] LABS: ABG BASE EXCESS -1.6 mmol/L; ABG OXYGEN SATURATION 98.2 % (92.0-98.5); ABG PCO2 28.1 mmHg (35.0-45.0); ABG PH 7.482 (7.350-7.450); ABG PO2 115.4 mmHg (75.0-100.0); AaDO2 65.5 mmHg; COHb 0.1 % (0.5-1.5); MetHb 0.2 % (0.0-1.5); O2Hb 97.9 % (94.0-97.0); PEEP,BG 0 cm H2O; SITE, ABG Right Radial; VT, ABG 500 mL
--- NOTE | 2021-04-22 11:24 | NUR ---
RN NOTIFIED MD NOTIFIED RE PATIENT'S PERSISTENT HIGH RESIDUALS ON OGT FEED. FEED KEPT ON HOLD. NATHAN ORDERED. Addendum: 04/22/21 at 1126 by ANITA SANCHEZ RN *NIRANJAN LAZARO
--- NOTE | 2021-04-22 18:16 | NUR ---
RN NOTES PATIENT REMAINS OBTUNDED, ORALLY INTUBATED WITH MECHVENT SETTINGS AC 20 TV 500 FIO2 40% PEEP 0. SR ON BEDSIDE MONITOR. OGT CLAMPED. PERIPHERAL IVS X2. RIGHT FEMORAL TLC WITH LEVO AT 0.08MCG/KG/HR AND D51/2 NS AT 50ML/HR ON FLOW. CAMPO DRAINED 1200MLS BY GRAVITY. SAFETY CHECKS IN PLACE. WILL ENDORSE TO NIGHT RN FOR CONTINUITY OF CARE.
[2021-04-23] VITALS (86 sets, daily range): BP systolic 77–136; BP diastolic 49–92
--- NOTE | 2021-04-23 00:02 | NUR ---
PATIENT MENTAL STATUS IS UNRESPONSIVE PUPILS [place]UGG[place] 4MM EXTREMITIES FLACCID ON MONITOR SINUS TRAVON HEART RATE 54. TEMP 97.8 HAS RT.FEMERAL WITH TRIPLE LUMEN INFUSING LEVOPHED 0.06 MCG KG MIN 6.7ML HR. D5 1/2NS 50 HR. PATIENT HAS OGT TUBE NO FEEDING INFUSING AT THIS TIME. PATIENT HAS A HIGH RESIDUAL. HAS F/C DRAINING DAYO URINE.BLOOD SUGAR 269 6 UNITS REG INSULIN GIVEN S.Q. PATIENT HAS SCANT AMOUNT OF URINE DRAINING.
[2021-04-23] MEDS: BLOOD SUGAR DIAGNOSTIC 1 EACH STRIP IN SCH ×4 (00:17→17:05)
[2021-04-23] MEDS: INSULIN REGULAR, HUMAN 100 UNIT/ML 3 ML VIAL SQ PRN ×4 (00:20→17:09)
[2021-04-23] MEDS: IV D5/0.45 NACL 1,000 ML IV PRN ×2 (02:51→23:17)
[2021-04-23] MEDS: DEXAMETHASONE SOD PHOSPHATE 10 MG/ML VIAL IV SCH ×2 (04:49→09:51)
[2021-04-23] MEDS: CLINDAMYCIN 900 MG in IV D5W 50 ML IV SCH ×3 (04:50→21:36)
[2021-04-23 04:56] LABS: BASOPHILS % (AUTO) 0.1 % (0.0-2.0); HEMATOCRIT 40 % (39-51); HEMOGLOBIN 13.7 g/dL (13.5-17.5); LYMPHOCYTES # (AUTO) 0.6 K/uL (0.8-4.8); LYMPHOCYTES % (AUTO) 4.2 % (20.0-44.0); MEAN CORPUSCULAR HGB CONC 34 g/dl (31.0-36.0); MEAN CORPUSCULAR VOLUME 88 fL (80-96); MONOCYTES # (AUTO) 0.5 K/uL (0.1-1.30); MONOCYTES % (AUTO) 3.4 % (2.0-12.0); NEUTROPHILS # (AUTO) 12.7 K/uL (1.8-8.9); NEUTROPHILS % (AUTO) 92.3 % (43.0-81.0); RED BLOOD CELL COUNT(AUTO) 4.59 MIL/uL (4.5-6.0); WHITE BLOOD COUNT (AUTO) 13.7 K/uL (4.3-11.0)
[2021-04-23 05:00] LABS: PLATELET COUNT (AUTO) 47 K/uL (150-450)
[2021-04-23 05:07] LABS: CALCIUM, SERUM 8.9 mg/dL (8.5-10.1); CREATININE 0.6 mg/dL (0.6-1.3)
[2021-04-23 05:13] LABS: D-DIMER 21.23 mg/L(FEU (0.17-0.50)
[2021-04-23 05:17] LABS: BAND % (MANUAL) 20 % (0.0-5.0); BASOPHILS % (MANUAL) 0 % (0.0-2.0); EOSINOPHILS % (MANUAL) 0 % (0-4); LYMPHOCYTES % (MANUAL) 4 % (16-48); MONOCYTES % (MANUAL) 4 % (0-11.0); NEUTROPHILS % (MANUAL) 72 (42-76)
[2021-04-23] MEDS: LEVETIRACETAM SOL (5 ML) 100 MG/ML UDC GT SCH ×2 (05:47→17:05)
--- NOTE | 2021-04-23 06:36 | NUR ---
0500 lab called with result of plt. 47.told charge nurse ed. told me yesterday was 53 drHina aware. blood sugar 0600 244 covered with 4 units of reg insulin.
--- NOTE | 2021-04-23 07:17 | NUR ---
RN NOTES RECEIVED PATIENT UNRESPONSIVE, ABSENT REFLEXES, ORALLY INTUBATED WITH MECHVENT SETTINGS AC 20 TV 500 FIO2 40% PEEP 0. SR/SB ON BEDSIDE MONITOR. OGT CLAMPED. PERIPHERAL IVS X2. RIGHT FEMORAL TLC WITH LEVO AT 0.06MCG/KG/HR AND D51/2 NS AT 50ML/HR ON FLOW. CAMPO DRAINING BY GRAVITY. SAFETY CHECKS IN PLACE. WILL CONTINUE TO MONITOR.
--- NOTE | 2021-04-23 07:55 | NUR ---
RT PATIENT REC'D ORALLY INTUBATED ON [facility] VENT. VENT ALARMS CHECKED + AUDIBLE. PATIENT NOT SEDATED, NON RESPONSIVE. AMBU BAG AT [facility]. AIRWAY CHECKED AND PATENT. Addendum: 04/23/21 at 1725 by TESSY ACEVEDO RT Amended: Links added.
[2021-04-23] MEDS: PANTOPRAZOLE 40 MG TABLET.DR PO SCH (08:03)
[2021-04-23] MEDS: CEFEPIME 2 GM in IV D5W 100 ML IV SCH ×2 (08:03→21:36)
[2021-04-23] MEDS: INSULIN GLARGINE, 100 UNIT/ML CARTRIDGE SQ SCH ×2 (08:06→17:10)
[2021-04-23] MEDS: NOREPINEPHRINE 8 MG in IV NS 0.9% 242 ML IV PRN (11:31)
--- NOTE | 2021-04-23 13:30 | NUR ---
RN NOTE EEG WAS PERFORMED. NO BRAIN ACTIVITY SEEN. DR MARIE WAS NOTIFIED BY SALES AGENT INSURANCE.
--- NOTE | 2021-04-23 18:11 | NUR ---
RN NOTES PATIENT REMAINS UNRESPONSIVE, ORALLY INTUBATED WITH MECHVENT SETTINGS AC 20 TV 500 FIO2 40% PEEP 0. SB ON BEDSIDE MONITOR. OGT CLAMPED. PERIPHERAL IVS X2. RIGHT FEMORAL TLC WITH LEVO AT 0.06MCG/KG/HR AND D51/2 NS AT 50ML/HR ON FLOW. CAMPO DRAINED 2000MLS THIS SHIFT. PENDING CT HEAD W/O CONTRAST. SAFETY CHECKS IN PLACE. WILL ENDORSE TO NIGHT RN FOR CONTINUITY OF CARE
--- NOTE | 2021-04-23 23:42 | NUR ---
PATIENT UNRESPONSIVE HAD EEG DONE TODAY SHOWED NO BRAIN ACTIVITY.PATIENT SINUS TRAVON IN LOW 50S,.B/P110/79. PATIENT HAS LEVOPHED INFUSING VIA. RIGHT FEMORAL LINE. D51/2NS INFUSING 50 HOUR. PATIENT HAS EG-TUBE AC,20,TV 500,FI02 30 % PEEP 0. SAT 98%. BLOOD SUGAR 275 COVERED WITH 6 UNITS REG. INSULIN S.Q. HAS F/C DRAINING WELL DAYO URINE.
[2021-04-24] VITALS (74 sets, daily range): BP systolic 54–138; BP diastolic 38–105
[2021-04-24] MEDS: INSULIN REGULAR, HUMAN 100 UNIT/ML 3 ML VIAL SQ PRN ×3 (00:09→11:19)
[2021-04-24] MEDS: BLOOD SUGAR DIAGNOSTIC 1 EACH STRIP IN SCH ×4 (00:12→17:10)
[2021-04-24] MEDS: CLINDAMYCIN 900 MG in IV D5W 50 ML IV SCH ×2 (04:29→12:15)
[2021-04-24] MEDS: NOREPINEPHRINE 8 MG in IV NS 0.9% 242 ML IV PRN ×2 (05:19→11:16)
[2021-04-24] MEDS: LEVETIRACETAM SOL (5 ML) 100 MG/ML UDC GT SCH ×2 (05:34→17:08)
[2021-04-24 05:39] LABS: CALCIUM, SERUM 9.7 mg/dL (8.5-10.1); CREATININE 0.8 mg/dL (0.6-1.3); POTASSIUM 3.6 mmol/L (3.5-5.1)
--- NOTE | 2021-04-24 07:00 | NUR ---
UNIX MANAGER Bedside report taken from [facility] nurse Netta RN. pt unresponsive, pt does not open eyes, no movement in bue or ble, pupils are dilated and fixed. pt has no cough and no gag. pt intubated fio2 30 % qyn658%, aysha lung sounds clear uppers and diminished lower. pt has ogt clamped. bowel sounds hypoactive. pt has vazquez intact and draining clear, yellow urine. pt has rash and discoloration on back. pt hypotensive with bp 80s and hypothermic temp 94, charge nurse Heath RN and Germaine RN at bedside. [facility] called for [facility] [place] awaiting delivery, levophed increased for bp support. will continue to monitor.
--- NOTE | 2021-04-24 07:10 | NUR ---
REGIONAL BUSINESS MANAGER Dr Lama at bedside aware pt hypotensive bp 80s and hypothermic temp 94, per md EEG flat, nothing else can be done at this time.
--- NOTE | 2021-04-24 07:30 | NUR ---
RT Pt received orally intubated on mechanical ventilation with noted settings. Equal bilateral breath sounds and chest rise noted. Vent is plugged into red outlet. No SOB or respiratory distress is noted. Addendum: 04/24/21 at 1339 by HOWIE AGUILAR RT Amended: Links added.
[2021-04-24] MEDS ORDERED: DESMOPRESSIN 20 MCG in IV NS 0.9% 50 ML IV ONE (08:00)
[2021-04-24] MEDS: PANTOPRAZOLE 40 MG TABLET.DR PO SCH (08:05)
[2021-04-24] MEDS: CEFEPIME 2 GM in IV D5W 100 ML IV SCH (08:05)
[2021-04-24] MEDS: INSULIN GLARGINE, 100 UNIT/ML CARTRIDGE SQ SCH ×2 (08:13→17:13)
--- NOTE | 2021-04-24 09:10 | NUR ---
LITHOGRAPH OPERATOR CT called spoke to tech informed that pt ready to go to CT whenever CT is ready. Norbret RT notified. pt ready and waiting for transport.
--- NOTE | 2021-04-24 09:42 | NUR ---
HOUSING INSPECTORS Dr Vallecillo at bedside assessing pt and updated on pt status. per md do not titrate pressors , leave pressors at set rate. md aware that bp 70s and that pt temp 94.5, ok per md, no bear hugger to be placed at this time. new orders pending. md aware pt to go to CT head, ok per md. charge nurse jojo at bedside talking to md and discussing pt plan of care.
--- NOTE | 2021-04-24 12:00 | NUR ---
IRRIGATION MANAGER Dr Vallecillo informed that Dr Rodriguez's reading of eeg states electrocerebral silence, ok per md no new orders. Dr Mclean informed that Dr Serrato informed that Dr Rodriguez's reading of eeg states electrocerebral silence. no response from MD at this time. Dr Vallecillo informed that son called and asked to update son on pt condition. awaiting from md orders on pt plan of care and how to proceed. Charge nurse Heath RN aware. no new orders at this time.
--- NOTE | 2021-04-24 15:15 | NUR ---
VISUAL COORDINATOR Dr Rodriguez at bedside assessing pt . no new orders. awaiting md notes. charge nurse Heath UREÑA aware.
--- NOTE | 2021-04-24 15:40 | NUR ---
LAW PROFESSOR Dr Rodriguez and Dr Bass notes reviewed with charge nurse Heath UREÑA, advised to talk to Dr Arreaga on how to preoceed and the next steps in care and to verify if ok to terminally extubate. Per Dr Arreaga do not extubate at this time, 2nd md need to write note to specifying brain and advised to wait until 2020 to allow the PCP, and other physicians to make their rounds, see the pt and write their notes at that time. no new orders. charge nurse Heath UREÑA aware.
--- NOTE | 2021-04-24 16:05 | NUR ---
BANKING PIN ADJUSTER pt bathed and cleaned linen change done, skin check done, no new wounds noted. vitals stable. will continue to monitor.
[2021-04-24] MEDS ORDERED: DEXAMETHASONE SOD PHOSPHATE 10 MG/ML VIAL IV SCH (18:00)
--- NOTE | 2021-04-24 18:22 | NUR ---
CLOTH BLEACHING RANGE OPERATOR CHIEF SPOKE WITH NADEGE PINA AND KATE BY PHONE. BRAIN HAS BEEN DECLARED BY DR PASCUAL. ORDER FOR TERMINAL EXTUBATION PLACED. LEVO AND IVF DISCONTINUED.
--- NOTE | 2021-04-24 18:25 | NUR ---
VESSEL WELDER Spoke to charge nurse Heath UREÑA, per Dr Vallecillo and Dr Mclean all pressors and IVF stopped and pt to be terminally extubated. All iv meds off per order. see charge nurse notes.
[2021-04-24] MEDS ORDERED: DC PROPOFOL WHEN EXTUBATED XX PRN (19:00)
--- NOTE | 2021-04-24 19:00 | NUR ---
MANAGER HEART FAILURE Bedside report given to charge nurse Ryne UREÑA. pt unresponsive, intubated. all pressors and ivf d/c per md order. terminal extubation endorsed to noc nurse. brothsarah riddle and conservator Lex phone numbers on pt board and given to noc nurse.
--- NOTE | 2021-04-24 19:40 | NUR ---
RN/ICU- PT. EKG ASYSTOLE X 2 LEADS. PRONOUNCED BY NIRANJAN MOHAMUD.
--- NOTE | 2021-04-24 19:40 | NUR ---
RN/ICU- PRONOUNCEMENT OF :CODE STATUS:DO NOT RESUSCITATE. PT. UNRESPONSIVE TO ANY FOR OF STIMULI.PUPLIS ARE FIXED AND DILATED. ALL EXTREMITIES ARE FLACCID. EKG X2 LEADS ASYSTOLE.PERIPHERAL PULSES ARE ABSENT. APNEIC. ABSENT RESPIRATIONS. NO SIGNS OF LIFE. PT. PRONOUNCED AT 1939. BY MARCI YOUSIF RN
--- NOTE | 2021-04-24 19:58 | NUR ---
RN/ICU- BROTHER INGRIS NOTIFIED BY PHONE, WILL NOTIFY CONSERVATOR HUGH
--- NOTE | 2021-04-24 20:00 | NUR ---
RN/ICU- ATTEMPTED TO REACH CONSERVATOR HUGH BY PHONE, MESSAGE LEFT TO CALL BACK [facility]/ICU(TEL. [phone])
--- NOTE | 2021-04-24 20:05 | NUR ---
RN/ICU-Jsoe MORENO DNP AWARE OF PT. EXPIRATION.
--- NOTE | 2021-04-24 20:40 | NUR ---
RN/ICU- POST MORTEM CARE DONE
--- NOTE | 2021-04-24 21:00 | NUR ---
RN/ICU- TO [facility]TA [facility]GA PER PROTOCOL
== END 2021-04-24 19:40 | DRG 870 ==
LOC: ER 19:03 → ICU 21:11
PROVIDERS: ADMIT Nurse Practitioner Acute Care; ATTEND Internal Medicine
PROC: 5A1955Z Respiratory Ventilation, Greater than 96 Consecutive Hours (ICD-10-PCS; principal; 2021-04-17)
PROC: 0BH18EZ Insertion of Endotracheal Airway into Trachea, Via Natural or Artificial Opening Endoscopic (ICD-10-PCS; 2021-04-17)
DX: A41.9 Sepsis, unspecified organism (principal); I21.4 Non-ST elevation (NSTEMI) myocardial infarction; J96.01 Acute respiratory failure with hypoxia; N17.0 Acute kidney failure with tubular necrosis; R65.21 Severe sepsis with septic shock; J69.0 Pneumonitis due to inhalation of food and vomit; G93.6 Cerebral edema; G04.90 Encephalitis and encephalomyelitis, unspecified; E87.0 Hyperosmolality and hypernatremia; N39.0 Urinary tract infection, site not specified; D68.9 Coagulation defect, unspecified; E44.1 Mild protein-calorie malnutrition; E87.4 Mixed disorder of acid-base balance; C71.9 Malignant neoplasm of brain, unspecified; J44.0 Chronic obstructive pulmonary disease with (acute) lower respiratory infection; R64 Cachexia; G91.9 Hydrocephalus, unspecified; E86.1 Hypovolemia; E86.0 Dehydration; G40.909 Epilepsy, unspecified, not intractable, without status epilepticus; Z85.841 Personal history of malignant neoplasm of brain; Z66 Do not resuscitate; Z20.822 Contact with and (suspected) exposure to COVID-19; N18.9 Chronic kidney disease, unspecified; N40.0 Benign prostatic hyperplasia without lower urinary tract symptoms; Z79.51 Long term (current) use of inhaled steroids; Z79.899 Other long term (current) drug therapy; F29 Unspecified psychosis not due to a substance or known physiological condition; F20.9 Schizophrenia, unspecified; F31.9 Bipolar disorder, unspecified; D69.6 Thrombocytopenia, unspecified; R57.1 Hypovolemic shock; Y95 Nosocomial condition; E87.70 Fluid overload, unspecified; D75.1 Secondary polycythemia; Z98.890 Other specified postprocedural states
CPT/HCPCS: 31720; 36415; 36600; 70450-TC; 71045-TC; 74018; 76770-TC; 80048-TC; 80053-TC; 80061-TC; 80076-TC; 80202-TC; 81001; 82803-TC; 82962-TC; 83605-TC; 83735-TC; 83970; 84100-TC; 84484-TC; 85025-TC; 85378-TC; 85396; 85730-TC; 87040-TC; 87081-TC; 87086-TC; 94002-TC; 94003-TC; 94760-TC; 94799-TC; 95819-TC; 99082-TC; C1751; C9113; C9803; G0378; J0692; J1100; J1644; J1815; J1953; J2185; J2543; J2597; J3370; J3480; J3490; J7030; J7050; J7060; J7070; U0003